=== PATIENT | male | born 1960 | race Caucasian/White ===

== ENCOUNTER → 2019-03-08 | Outpatient (CLI) | payer BC ==
[~2019-03-08] MED LIST: ACULAR 0.5%3 ML OPH; TOBREX OPHTH S2.5 ML OPH
== END | disposition home or self-care (01) ==
LOC: RAD 15:00
DX: R91.1 Solitary pulmonary nodule (principal)

== ENCOUNTER → 2019-03-19 | Outpatient (CLI) | payer BC | END | disposition home or self-care (01) | LOC: CT 07:50 | DX: R91.1 Solitary pulmonary nodule (principal); I48.91 Unspecified atrial fibrillation ==

== ENCOUNTER → 2019-08-31 | Outpatient (CLI) | payer BC ==
[~2019-08-31] MED LIST changes: +ADULTS 50 PLUS1 EACH PO; +FISH OIL 1,0001 EAC5 PO
--- NOTE | 2019-08-31 10:30 | NUR ---
INFORMED CONSENT OBTAINED FOR STANDARD GXT WITH DR. SWAIN. RESTING EKG SINUS CRHIS WITH A SUPINE HR OF 58 WITH BP OF 128/68 AND HR OF 76 WITH BP OF 112/74 IN STANDING POSITION. PT COMPLETED 11:00 OF A ABIGAIL PROTOCOL WITH COMPLETION OF 2:00 OF STAGE IV AT 4.2 MPH AND 16% GRADE. REACHED A PEAK HR OF 136 WHICH IS 85% OF PREDICTED MAX WITH A PEAK BP OF 184/76. TEST TERMINATED BECAUSE OF PHYSICIAN DISCRETION. HAD NO CHEST PAIN OR ANY EKG CHANGES. HAS A HIGH EXERCISE TOLERANCE. NEGATIVE STANDARD GXT. LAST RECOVERY HR OF 77 WITH BP OF 128/78. IV DISCONTINUED AND DISCHARGED IN STABLE CONDITION.
== END | disposition home or self-care (01) ==
LOC: CARD 00:57
DX: R00.2 Palpitations (principal); Z86.79 Personal history of other diseases of the circulatory system; Z82.49 Family history of ischemic heart disease and other diseases of the circulatory system

== ENCOUNTER → 2021-05-08 | Outpatient (CLI) | payer BC | END | disposition home or self-care (01) | LOC: US 10:37 | PROVIDERS: ATTEND Orthopaedic Surgery | DX: M71.21 Synovial cyst of popliteal space [Baker], right knee (principal); M17.11 Unilateral primary osteoarthritis, right knee; M23.91 Unspecified internal derangement of right knee; M25.561 Pain in right knee; S83.241D Other tear of medial meniscus, current injury, right knee, subsequent encounter; X58.XXXD Exposure to other specified factors, subsequent encounter ==

== ENCOUNTER → 2021-07-21 | Outpatient (CLI) | payer BC ==
[2021-07-21 16:33] LABS: BASO # 0.1 10*3/uL (0.0-0.1); BASO % 0.9 % (0.0-1.0); EOS # 0.2 10*3/uL (0.0-0.4); EOS % 3.3 % (1.0-4.0); HEMATOCRIT 42.6 % (42.0-52.0); LYMPH # 2.2 10*3/uL (1.3-4.4); LYMPH % 38.3 % (27.0-41.0); MEAN CELL VOLUME 88.2 fl (80.0-94.0); MEAN CORPUSCULAR HGB 29.4 pg (27.0-31.0); MEAN CORPUSCULAR HGB CONC 33.3 g/dl (33.0-37.0); MEAN PLATELET VOLUME 9.3 fl (9.6-12.3); MONO # 0.6 10*3/uL (0.1-1.0); MONO % 10.7 % (3.0-9.0); NEUT # 2.7 10*3/uL (2.3-7.9); NEUT % 46.5 % (47.0-73.0); PLATELET COUNT AUTOMATED 322 10*3/uL (130-400); RED BLOOD COUNT 4.83 10*6/uL (4.50-5.90); RED CELL DISTRI WIDTH 12.7 % (0-14.5); WHITE BLOOD COUNT 5.8 10*3/uL (4.8-10.8)
[2021-07-21 17:04] LABS: BUN 15 mg/dl (7-24); CHLORIDE 110 mmol/L (98-107); CREATININE 1.16 mg/dL (0.70-1.30); SGOT/AST 27 IU/L (3-35); SGPT/ALT 43 U/L (12-78); SODIUM 141 mmol/L (136-145); TOTAL PROTEIN 7.3 gm/dL (6.4-8.2)
[2021-07-21 17:05] LABS: ALKALINE PHOSPHATASE 60 U/L (45-117)
== END | disposition home or self-care (01) ==
LOC: LAB 15:57 → CT 16:00
PROVIDERS: ATTEND Urology
DX: K57.30 Diverticulosis of large intestine without perforation or abscess without bleeding (principal); N40.0 Benign prostatic hyperplasia without lower urinary tract symptoms; R53.83 Other fatigue; K40.90 Unilateral inguinal hernia, without obstruction or gangrene, not specified as recurrent

== ENCOUNTER → 2024-02-06 | Outpatient (CLI) | payer OTHER ==
[2024-02-06 17:04] LABS: BUN 17 mg/dl (9-23); CHLORIDE 105 mmol/L (98-107); POTASSIUM 4.1 mmol/L (3.4-5.1)
== END | disposition home or self-care (01) ==
LOC: LAB 16:22
PROVIDERS: ATTEND Internal Medicine
DX: I10 Essential (primary) hypertension (principal)

== ENCOUNTER → 2024-02-29 | Outpatient (CLI) | payer OTHER ==
[~2024-02-29] MED LIST changes: +IOHEXOL 300 MG/ML 100 ML VIAL IV ONE; +IOHEXOL 300 MG/ML 100 ML VIAL ONE
== END | disposition home or self-care (01) ==
LOC: CT 14:30
PROVIDERS: ATTEND Internal Medicine
DX: R91.1 Solitary pulmonary nodule (principal); R04.2 Hemoptysis

== ENCOUNTER → 2024-06-04 | Outpatient (CLI) | payer OTHER ==
[~2024-06-04] MED LIST changes: -IOHEXOL 300 MG/ML 100 ML VIAL IV ONE; -IOHEXOL 300 MG/ML 100 ML VIAL ONE
[2024-06-04 10:53] LABS: BASO # 0.1 10*3/uL (0.0-0.1); BASO % 0.9 % (0.0-1.0); EOS # 0.1 10*3/uL (0.0-0.4); EOS % 1.3 % (1.0-4.0); HEMATOCRIT 45.8 % (42.0-52.0); MEAN CELL VOLUME 88.1 fl (80.0-94.0); MEAN CORPUSCULAR HGB 28.5 pg (27.0-31.0); MEAN CORPUSCULAR HGB CONC 32.3 g/dl (33.0-37.0); MEAN PLATELET VOLUME 8.8 fl (9.6-12.3); MONO # 0.5 10*3/uL (0.1-1.0); NEUT # 3.2 10*3/uL (2.3-7.9); NEUT % 57.1 % (47.0-73.0); PLATELET COUNT AUTOMATED 369 10*3/uL (130-400); RED CELL DISTRI WIDTH 12.3 % (0-14.5); WHITE BLOOD COUNT 5.6 10*3/uL (4.8-10.8)
[2024-06-04 11:12] LABS: ALKALINE PHOSPHATASE 61 U/L (46-116); BUN 17 mg/dl (9-23); CHLORIDE 104 mmol/L (98-107); POTASSIUM 3.9 mmol/L (3.4-5.1); SGPT/ALT 31 U/L (5-49); TOTAL PROTEIN 7.1 gm/dL (6.0-8.0)
== END | disposition home or self-care (01) ==
LOC: LAB 09:52 → US 10:00
PROVIDERS: ATTEND Urology
DX: N28.1 Cyst of kidney, acquired (principal)